=== PATIENT | female | born 1965 | race Caucasian/White ===

== ENCOUNTER 2017-05-07 00:15 | Emergency (ER) | payer OTHER ==
--- NOTE | 2017-05-07 00:24 | ED Physician Documentation ---
PD HPI DYSPNEA - Stated complaint Stated Complaint: DIFF BREATHING - History obtained from History obtained from: Patient - History of Present Illness Timing - onset: How many days ago (3-4) Timing - duration: Days Timing - details: Gradual onset, Waxing and waning Pain level now: 6 (headache) Improved by: Rest Worsened by: Exertion, Coughing Associated symptoms: Fever, Cough, Wheezing. No: Hemoptysis, Chest pain / discomfort, Palpitations, Diaphoresis, Bilateral edema, Unilateral edema Similar symptoms before: Diagnosis (influenza) Recently seen: Clinic - Additional information Additional information: c/o dyspnea, fever x 3-4 days. Was seen by PMD, diagnosed with influenza ( patient does not recall whether or not an actual test/swab was done), prescribed tamiflu, augmentin, guiatuss (with hydrocodone), and albuterol solution and nebulizer (no inhalers). She presents due to worsening cough and dyspnea. She has taken two full days of augmentin and tamiflu thus far. Review of Systems Constitutional: reports: Fever, Chills, Sweats Cardiac: denies: Chest pain / pressure, Palpitations, Pedal edema, Calf pain Respiratory: reports: Dyspnea, Cough, Wheezing. denies: Hemoptysis GI: denies: Abdominal Pain, Nausea, Vomiting, Constipation, Diarrhea : denies: Dysuria, Frequency Neurologic: reports: Headache. denies: Generalized weakness, Focal weakness, Numbness, Head injury PD PAST MEDICAL HISTORY - Past Medical History Cardiovascular: None Respiratory: None Endocrine/Autoimmune: None GI: None : None HEENT: None Psych: None Musculoskeletal: Other Derm: None - Present Medications Home Medications: Ambulatory Orders Medication Instructions Recorded Confirmed oxyCODONE [Roxicodone] 5 mg PO Q6H PRN #14 tablet 05/07/17 predniSONE [Prednisone] 40 mg PO DAILY #6 tablet 05/07/17 - Allergies Allergies/Adverse Reactions: Allergies Allergy/AdvReac Type Severity Reaction Status Date / Time No Known Drug Allergies Allergy Verified 05/07/17 00:30 PD ED PE NORMAL - Vitals Vital signs reviewed: Yes - General General: Alert and oriented X 3, Well developed/nourished, Other (speaks in abbreviated sentences) - HEENT HEENT: Moist mucous membranes - Neck Neck: Supple, no meningeal sign - Cardiac Cardiac: RRR, No murmur - Respiratory Respiratory: No respiratory distress - Abdomen Abdomen: Soft, Non tender - Extremities Extremities: No edema PD ED PE EXPANDED - Respiratory Respiratory: Wheezing (bilateral expiratory wheezing all lung torrez) Results - Vitals Vitals: Oxygen O2 Source Nasal cannula Oxygen Flow Rate 3 - Rads (name of study) chest xray Radiology: Prelim report reviewed, See rad report PD MEDICAL DECISION MAKING - ED course Complexity details: reviewed results, re-evaluated patient, considered differential, d/w patient ED course: Patient reported feeling significant improvement after duoneb followed by xopenex neb. Also given PO prednisone in ED, oxycodone (for headache but this can have cough-suppressant effect as well). After these medications and observation in ED, her lung exam revealed ongoing wheezing though much better ( mid-expiratory, and better air movement/flow). Her pulse ox would drop to upper 80s on RA, but would come up to 93-95% with deep breaths. She was not symptomatic with the drops in pulse ox and expressed a strong desire to be discharged home. She agreed to have a third treatment (xoponex) prior to discharge. She expressed understanding that she needs to return immediately ( call 911) if she feels worse. Departure - Departure Disposition: 01 Home, Self Care Clinical Impression: Bronchitis with bronchospasm Condition: Good Instructions: ED Bronchitis Asthmatic, ED Viral Syndrome Prescriptions: oxyCODONE [Roxicodone] 5 mg PO Q6H PRN #14 tablet PRN Reason: Headache predniSONE [Prednisone] 40 mg PO DAILY #6 tablet Discharge Date/Time: 05/07/17 04:28
[2017-05-07] MEDS ORDERED: IPRATROPIUM/ALBUTEROL 3 ML NEB INH STA (00:42)
[2017-05-07] MEDS ORDERED: predniSONE 20 MG TABLET PO STA (00:43)
--- NOTE | 2017-05-07 01:17 | XRAY Preliminary Report ---
Exam: XR CHEST 2 VIEW X-RAY IMPRESSION: Stable negative 2-view chest radiography. [facility] SITE ID: [id number]
--- NOTE | 2017-05-07 01:17 | XRAY Report ---
EXAM: CHEST RADIOGRAPHY EXAM DATE: 05/07/2017 01:04 AM. CLINICAL HISTORY: Dyspnea, cough. COMPARISON: 01/08/2014. TECHNIQUE: 2 views. FINDINGS: Lungs/Pleura: No focal opacities evident. No pleural effusion. No pneumothorax. Normal volumes. Mediastinum: Heart and mediastinal contours are unremarkable. Other: Previous left shoulder surgery. IMPRESSION: Stable negative 2-view chest radiography. [facility] Referring Provider Line: [phone] SITE ID: [id number]
[2017-05-07] MEDS ORDERED: LEVALBUTEROL 1.25 MG/3 ML NEB INH STA ×2 (01:31→03:55)
[2017-05-07] MEDS ORDERED: oxyCODONE 5 MG TABLET PO STA (02:36)
[2017-05-07 03:21] VITALS: BP 113/67
== END 2017-05-07 04:28 | disposition home or self-care (01) ==
LOC: ED 00:15
DX: J20.9 Acute bronchitis, unspecified (principal); R51 Headache
CPT/HCPCS: 71046; 94640; 99283; 99284; A9270; J7512; J7614; J7620

== ENCOUNTER 2020-01-29 10:59 | Outpatient (CLI) | payer OTHER | END 2020-01-29 11:00 | disposition home or self-care (01) | LOC: COV 10:59 | PROVIDERS: ATTEND Family Medicine | DX: R05 Cough (principal); R53.83 Other fatigue; Z20.828 Contact with and (suspected) exposure to other viral communicable diseases ==

== ENCOUNTER 2020-05-21 10:36 | Outpatient (CLI) | payer OTHER ==
--- NOTE | 2020-05-23 09:06 | Mammography Report ---
BILATERAL DIGITAL SCREENING MAMMOGRAM 3D/2D: 05/21/2020 CLINICAL: Routine Screening. Comparison is made to exam dated: 12/24/2011 mammogram - [facility]. There are sc attered fibroglandular elements in both breasts. No significant masses, calcifications, or other findings are seen in either breast. There has been no significant interval change. IMPRESSION: NEGATIVE There is no mammographic evidence of malignancy. A 1 year screening mammogram is recommended. This exam was interpreted at Station ID: [id number]. NOTE: For mammograms, a report in lay terms will be sent to the patient. Approximately 15% of breast malignancies will not be visualized mammographically. In the management of a palpable breast mass, a negative mammogram must not discourage biopsy of a clinically suspicious lesion. Electronically Signed By: Dominik Saul M.D. [email or web address]:05/21/2020 11:56:17 ACR BI-RADS Category 1: Negative 3341F PARENCHYMAL PATTERN: (A) - The breast(s) demonstrate(s) scattered fibroglandular densities. BI-RADS CATEGORY: (1) - 1 RECOMMENDATION: (ANNUAL) - Recommend routine annual screening mammography. [id number] 1 year screening LATERALITY: (B)
== END 2020-05-21 10:37 | disposition home or self-care (01) ==
LOC: DI.S 10:36
PROVIDERS: ATTEND Registered Nurse
DX: Z12.31 Encounter for screening mammogram for malignant neoplasm of breast (principal)